=== PATIENT | female | born 1970 | race Caucasian/White ===

== ENCOUNTER 2022-04-05 01:49 | Emergency (ER) | payer OTHER ==
[~2022-04-05 01:49] MED LIST: BENTYL10 MG PO; NORCO 5-325 TA1 EACH PO; ONDANSETRON HCL4 MG PO
== END 2022-04-05 06:12 | disposition other institution (70) ==
LOC: FER 01:49
DX: S02.32XA Fracture of orbital floor, left side, initial encounter for closed fracture (principal); S02.2XXA Fracture of nasal bones, initial encounter for closed fracture; S01.81XA Laceration without foreign body of other part of head, initial encounter; I10 Essential (primary) hypertension; Z23 Encounter for immunization; Z79.899 Other long term (current) drug therapy; W10.8XXA Fall (on) (from) other stairs and steps, initial encounter; Y92.008 Other place in unspecified non-institutional (private) residence as the place of occurrence of the external cause
CPT/HCPCS: 70450; 70486; 72125; 90471; 90715